=== PATIENT | female | born 1955 | race Caucasian/White ===

== ENCOUNTER → 2017-01-18 | Outpatient (CLI) | payer OTHER ==
[~2017-01-18] MED LIST: ASPI81 PO; CALC1TAB15 PO; CHOL200018 PO; FLUT1DIS IH; LORA0.5T2 PO; QUET200T PO; SINE10100 PO; TRAZ-147 PO
== END | disposition home or self-care (01) ==
LOC: RADPV 08:59
PROVIDERS: ATTEND Internal Medicine
DX: R13.10 Dysphagia, unspecified (principal); G20 Parkinson's disease; J44.9 Chronic obstructive pulmonary disease, unspecified; E11.9 Type 2 diabetes mellitus without complications; E78.5 Hyperlipidemia, unspecified; R55 Syncope and collapse; F20.9 Schizophrenia, unspecified; F32.9 Major depressive disorder, single episode, unspecified; Z72.0 Tobacco use
CPT/HCPCS: 74230; 92611